=== PATIENT | female | born 1985 | race Caucasian/White ===

== ENCOUNTER 2020-07-02 18:31 | Emergency (ER) | payer SELFPAY ==
[~2020-07-02] VITALS: Ht 154.9 cm; Wt 49.9 kg
[2020-07-02] MEDS ORDERED: BIRTH CONTROL (18:44)
[2020-07-02] MEDS ORDERED: MECLIZINE HCL 25 MG TABLET PO ONE (19:30)
[2020-07-02] MEDS ORDERED: MECLIZINE HCL 25 MG TABLET ONE (19:30)
--- NOTE | 2020-07-02 19:31 | NUR ---
Patient discharged to home in stable condition. Written and verbal after care instructions given. Patient verbalizes understanding of instructions. Stressed follow up or return to ER for worsening s/s.
[2020-07-02 19:32] VITALS: BP 124/76
== END 2020-07-02 19:32 | disposition home or self-care (01) ==
LOC: ER 18:31
DX: R42 Dizziness and giddiness (principal)
CPT/HCPCS: A4663; J8597